=== PATIENT | male | born 1970 | race African-American/Black ===

== ENCOUNTER 2021-02-10 07:42 | Inpatient (IN) | payer OTHER ==
[~2021-02-10] VITALS: Ht 185.4 cm; Wt 109.5 kg
--- NOTE | 2021-02-10 08:30 | PHYS DOC ---
Past History Past Surgical History: No Surgical History General Adult EDM: Chief Complaint: DIZZY/LIGHT HEADED HPI: HPI: Patient is a 50-year-old male coming in for lightheaded episode that started 1 hour prior to arrival. Patient states he felt a little bit "off" when he was driving to work but while he was at work he said everything went "bright" and he felt dizzy, then described dizziness as being lightheaded and denies any vertigo type symptoms. Says the lightheadedness is improved now that he is lying down. Orthostatic vital signs done by nursing triage are positive for increase in heart rate by 20 bpm. Patient states he has been drinking water but when asked what he drinks during the day is mostly soda. Patient states he takes a pill for his hypertension in the evenings that makes him urinate but he does not know which medication he is taking or for sure if it is a diuretic. Denies any history of diabetes, polyuria or polydipsia. Denies any chest pain or pressure. Denies any lower extremity edema. Review of Systems: Review of Systems: All other systems within normal limits except for as noted in the HPI Allergies: Allergies: Allergies Coded Allergies Type Severity Reaction Last Updated Verified No Known Drug Allergies 02/10/21 No Physical Exam: PE: Constitutional: Well developed, well nourished, no acute distress, non-toxic appearance. [] HENT: Normocephalic, atraumatic, bilateral external ears normal, nose normal. [] Eyes: PERRLA, conjunctiva normal, no discharge. [] Neck: No rigidity, supple, no stridor. [] Cardiovascular: Regular rate and rhythm, brisk cap refill, symmetric radial and DP pulses [] Lungs & Thorax: Non labored symmetric respirations, no tachypnea or respiratory distress [] Abdomen: Soft, nondistended. Skin: Warm, dry, no erythema, no rash. [] Back: Unremarkable Extremities: No deformities, range of motion grossly intact, no lower extremity edema [] Neurologic: Alert and oriented X 3, no focal deficits noted. [] Psychologic: Affect normal, judgement normal, mood normal. [] Current Patient Data: Labs: Laboratory Tests Test 02/10/21 07:56 Glucose (Fingerstick) 103 mg/dL (70-99) H Vital Signs: Vital Signs Date Time Temp Pulse Resp B/P (MAP) Pulse Ox O2 Delivery O2 Flow Rate FiO2 02/10/21 07:52 98.1 80 18 150/96 (114) 94 Room Air EKG: EKG: Sinus rhythm, heart rate 80 bpm, LVH, Q waves in inferior leads, normal axis, no prior for comparison[] Radiology/Procedures: Radiology/Procedures: [] Heart Score: C/O Chest Pain: No HEART Score for Chest Pain: HEART Score for Chest Pain Response (Comments) Value History Slighlty/Non-Suspicious 0 ECG Nonspecific Repolarizatio 1 Age >45 - < 65 1 Risk Factors 1 or 2 Risk Factors 1 Troponin >3 x Normal Limit 2 Total 5 Risk Factors: Risk Factors: DM, Current or recent (<one month) smoker, HTN, HLP, family history of CAD, obesity. Risk Scores: Score 0 - 3: 2.5% MACE over next 6 weeks - Discharge Home Score 4 - 6: 20.3% MACE over next 6 weeks - Admit for Clinical Observation Score 7 - 10: 72.7% MACE over next 6 weeks - Early Invasive Strategies Course & Med Decision Making: Course & Med Decision Making Pertinent Labs and Imaging studies reviewed. (See chart for details) [] Dragon Disclaimer: Dragon Disclaimer: This electronic medical record was generated, in whole or in part, using a voice recognition dictation system. Departure Departure: Impression: Primary Impression: NSTEMI (non-ST elevated myocardial infarction) Disposition: ADMITTED INPATIENT Admitting Physician: Jose Eduardo Herron Condition: GUARDED Referrals: MONICA CHAMBERS DO (PCP) IZABELLA GUZMAN MD Feb 10, 2021 08:30
[2021-02-10 08:38] LABS: BASO % 1 % (0-3); EOS # 0.3 x10^3/uL (0.0-0.7); EOS % 3 % (0-3); HEMATOCRIT 38.5 % (39.0-53.0); HEMOGLOBIN 13.1 g/dL (13.0-17.5); LYMPH # 1.9 x10^3/uL (1.0-4.8); LYMPH % 20 % (24-48); MEAN CORPUSCULAR HEMOGLOBIN 26 pg (25-35); MEAN CORPUSCULAR HGB CONC 34 g/dL (31-37); MEAN CORPUSCULAR VOLUME 77 fL (79-100); MONO # 0.9 x10^3/uL (0.0-1.1); MONO % 10 % (0-9); NEUT # 6.6 x10^3uL (1.8-7.7); NEUT % 67 % (31-73); PLATELET COUNT 220 x10^3/uL (140-400); RED BLOOD COUNT 4.98 x10^6/uL (4.30-5.70); WHITE BLOOD COUNT 9.8 x10^3/uL (4.0-11.0)
[2021-02-10 08:49] LABS: CALCIUM 9.1 mg/dL (8.5-10.1); CREATININE 1.5 mg/dL (0.7-1.3); GFR 59.7; POTASSIUM 3.9 mmol/L (3.5-5.1)
[2021-02-10] MEDS: IV NORMAL SALINE 500ML 500 ML IV ONE ×2 (09:00→09:19)
[2021-02-10 09:03] LABS: ALBUMIN 3.9 g/dL (3.4-5.0); MAGNESIUM 2.1 mg/dL (1.8-2.4); TOTAL BILIRUBIN 0.6 mg/dL (0.2-1.0); TOTAL PROTEIN 7.7 g/dL (6.4-8.2)
--- NOTE | 2021-02-10 09:06 | RAD ---
EXAMINATION: Chest radiograph. VIEWS: Single AP view of the chest COMPARISON: None INDICATION:50 years, Male, near syncope FINDINGS: Normal cardiomediastinal silhouette. No focal consolidation. No pleural effusion or pneumothorax. No acute osseous process. IMPRESSION: No acute cardiopulmonary process. Electronically signed by: Piotr Reeves DO (02/10/2021 9:04 AM) [id number]
--- NOTE | 2021-02-10 09:13 | EKG ---
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
[2021-02-10] MEDS ORDERED: ASPIRIN CHEWABLE 81 MG TABLET. PO ONE (09:15)
[2021-02-10] MEDS ORDERED: IV NORMAL SALINE 1,000ML 1,000 ML IV ONE (09:15)
[2021-02-10] MEDS ORDERED: ASPIRIN CHEWABLE 81 MG TABLET. ONE (09:19)
--- NOTE | 2021-02-10 09:23 | EKG ---
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
[2021-02-10] MEDS ORDERED: HEPARIN for IV BOLUS 10,000 UNIT/10 ML VIAL. IV PRN (09:30)
[2021-02-10] MEDS ORDERED: HEPARIN for IV BOLUS 10,000 UNIT/10 ML VIAL. IV ONE (09:30)
[2021-02-10 09:35] LABS: BILIRUBIN,URINE NEG (NEG); CLARITY,URINE CLEAR; COLOR,URINE AMBER; GLUCOSE,URINE NEG (NEG); NITRITE,URINE NEG (NEG); UROBILINOGEN,URINE 0.2 mg/dL (0.2 mg/dL)
[2021-02-10 09:37] LABS: BACTERIA,URINE FEW /HPF (0-FEW); HYALINE CASTS, URINE FEW /HPF; RBC,URINE 0 /HPF (0-2); SQUAMOUS EPITHELIAL CELL,UR FEW /LPF
[2021-02-10] MEDS ORDERED: ACETAMINOPHEN 325 MG TABLET PO PRN (10:00)
[2021-02-10] MEDS ORDERED: ONDANSETRON PF 4 MG/2 ML VIAL. IVP PRN (10:00)
[2021-02-10] MEDS: HEPARIN 25,000UTS/250ML PREMIX 250 ML IV PRN ×2 (10:12→23:39)
[2021-02-10] MEDS: IV NORMAL SALINE 1,000ML 1,000 ML IV SCH ×2 (11:23→17:50)
[2021-02-10 13:05] VITALS: BP 188/113
[2021-02-10] MEDS ORDERED: VALS1TAB3 PO (15:13)
[2021-02-10 15:58] VITALS: BP 172/81
--- NOTE | 2021-02-10 17:40 | HP ---
ADMIT DATE: 02/10/2021 HISTORY OF PRESENT ILLNESS: The patient is a 50-year-old -[place] male patient who came with a complaint of dizziness and lightheadedness, started about an hour prior to arrival. The patient stated that he felt a little bit off when he was driving to work, but while he was at work, he said everything went bright and he felt dizzy, then described dizziness as being lightheaded. Denies any vertigo-type symptoms. States the lightheadedness has improved now that he is lying down. Orthostatic vital signs done by nursing triage, are positive for increase in heart rate by 20. The patient states that he has been drinking water, but when asked what he drinks during the day, it is mostly soda. He states that he takes a pill for his hypertension in the evening, makes him urinate, but he does not know which medication he is taking or ____ sure if it is diuretic. He denied any history of diabetes, polyuria, polydipsia. He was extensively investigated in the Emergency Room and has had an EKG, which showed that he was in sinus rhythm at a rate of 80 beats per minute with left ventricular hypertrophy, Q-waves in inferior leads, normal axis. He has had a chest x-ray, which showed that the patient has normal cardiomediastinal silhouette. No focal consolidation, pleural effusion or pneumothorax. No acute osseous process. He has had lab work done, showed that his first troponin was elevated at 0.245 and therefore, he was started on heparin drip and in consultation with the safety and security manager, a decision was made to keep him in [facility] as the safety and security manager will be rounding in this hospital today according to the nurse practitioner. PAST MEDICAL HISTORY: Significant for hypertension. PAST SURGICAL HISTORY: Unremarkable. ALLERGIES: He has no known drug allergies. MEDICATIONS: He is currently on following medications: He is on valsartan/hydrochlorothiazide 80/12.5 mg once a day. FAMILY HISTORY: Has three brothers and one sister older and two brothers younger. His older brother has coronary artery disease and had open heart surgery at age of 59. His father in his 60s and mother is still alive at the age of 76 and seems to have failure to thrive. SOCIAL HISTORY: He is single, has one daughter. Never smoked. Drinks alcohol on the weekends. Does not use any drugs. 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 REVIEW OF SYSTEMS: As per history of present illness. PHYSICAL EXAMINATION, GENERAL: When I examined him, he looked well and was clearly in no apparent respiratory distress. There is no pallor, jaundice, cyanosis, no lymphadenopathy, no thyromegaly, no jugular venous distention. No lower limb edema. VITAL SIGNS: His heart rate was 81, blood pressure was 172/81, temperature was 98.6, respiratory rate was 16 and oxygen saturation was 97%. HEAD, EYES, EARS, NOSE, AND THROAT: Showed normocephalic, atraumatic. NECK: Supple. HEART: Showed normal first and second heart sounds. No gallop or murmur. CHEST: Clear to auscultation. No crepitation or rhonchi. ABDOMEN: Distended, soft, nontender. NEUROLOGIC: He was awake, alert, responding appropriately. Cranial nerves intact. He moves extremities without difficulty, ambulates without assistance or assistive devices. LABORATORY DATA: Showed a white cell count 9800, hemoglobin 13, hematocrit 39, MCV 77 and platelet count of 120,000 with a normal manual differential. His chemistry showed a serum sodium 140, potassium 3.9, chloride 103, bicarbonate 30, anion gap of 7, BUN 20, creatinine 1.5. Estimated GFR was 59 mL per minute. His glucose was 99. Lactic acid was 0.8, calcium was 9.1, magnesium was 2.1. Total bilirubin, AST, ALT, alkaline phosphatase were normal. His troponin was less than 0.245. His beta natriuretic peptide was normal at 35. Total protein 7.7, albumin was 3.9. His prothrombin time/INR and APTT are normal. D-dimer was normal at 0.24. Urinalysis was essentially unremarkable, and his coronavirus rapid testing was negative. The patient has already had two more sets of cardiac enzymes, which showed troponin to be 0.229 and 0.220. ASSESSMENT AND PLAN: The patient will continue on his heparin drip. I will reconcile his medication and continue. We have consulted the safety and security manager and once the decision is made, he probably might need to be transferred to a different facility. The patient made it clear that he does not want to be transferred to [facility]. NITA/BUCK/MIA DR: NITA/emily TID: [id number]
[2021-02-10] MEDS: hydroCHLOROthiazide 12.5 MG CAPSULE PO SCH (17:48)
[2021-02-10] MEDS: LOSARTAN 50 MG TABLET. PO SCH (17:49)
[2021-02-10 19:45] VITALS: BP 143/77
[2021-02-10 23:38] VITALS: BP 150/79
[2021-02-11] MEDS: IV NORMAL SALINE 1,000ML 1,000 ML IV SCH (03:23)
[2021-02-11 05:55] VITALS: BP 170/91
[2021-02-11 06:50] LABS: CREATININE 1.1 mg/dL (0.7-1.3); GFR 85.4; POTASSIUM 3.8 mmol/L (3.5-5.1)
[2021-02-11 06:57] LABS: BASO % 1 % (0-3); EOS # 0.4 x10^3/uL (0.0-0.7); EOS % 5 % (0-3); HEMATOCRIT 37.3 % (39.0-53.0); HEMOGLOBIN 12.5 g/dL (13.0-17.5); LYMPH # 2.2 x10^3/uL (1.0-4.8); LYMPH % 25 % (24-48); MEAN CORPUSCULAR HEMOGLOBIN 26 pg (25-35); MEAN CORPUSCULAR HGB CONC 34 g/dL (31-37); MEAN CORPUSCULAR VOLUME 78 fL (79-100); MONO # 0.9 x10^3/uL (0.0-1.1); MONO % 10 % (0-9); NEUT # 5.1 x10^3uL (1.8-7.7); NEUT % 59 % (31-73); PLATELET COUNT 202 x10^3/uL (140-400); RED BLOOD COUNT 4.78 x10^6/uL (4.30-5.70); RED CELL DISTRIBUTION WIDTH 14.9 % (11.5-14.5); WHITE BLOOD COUNT 8.6 x10^3/uL (4.0-11.0)
[2021-02-11] MEDS: HEPARIN 25,000UTS/250ML PREMIX 250 ML IV PRN (07:39)
[2021-02-11] MEDS: hydroCHLOROthiazide 12.5 MG CAPSULE PO SCH (09:01)
[2021-02-11] MEDS: LOSARTAN 50 MG TABLET. PO SCH (09:02)
[2021-02-11 10:52] VITALS: BP 179/112
--- NOTE | 2021-02-11 13:29 | PDOC2 ---
CONSULT DOS: DATE: 02/11/21 TIME: 13:24 Reason for Consult: Dizziness and minimally elevated troponin. Referring Physician: Dr. Herron Chief Complaint Dizziness and lightheadedness Source: Chart review, Patient Problem List Problems Medical Problems: (1) NSTEMI (non-ST elevated myocardial infarction) Status: Acute History of Present Illness The patient is a pleasant 50-year-old male who was admitted through the emergency room for episodes of dizziness and lightheadedness. The patient had no episode of syncope. He did have mild orthostatic changes. He has a history of hypertension but no history of coronary disease, congestive heart failure or cardiac arrhythmias. His chest x-ray was clear with no acute changes. EKG showed a sinus rhythm with nonspecific ST-T wave changes and borderline left ventricle hypertrophy. His initial troponin was minimally elevated at 0.220. Since admission the patient has remained pain-free. He was treated with IV fluids and is feeling significantly better. His troponin level has peaked at 0.229. He is feeling significantly better. Of note a cholesterol panel today showed elevated LDL at 159 and an HDL of 46. Cardiovascular: HTN Past Surgical History: No pertinent history Family History: Coronary Artery Disease, Heart Disease Smoke: No ALCOHOL: occassional Current Medications Current Medications Sodium Chloride 500 ml @ 0 mls/hr 1X ONCE IV ; Start 02/10/21 at 09:00; Stop 02/10/21 at 09:01; Status DC Aspirin (Aspirin Chewable) 324 mg 1X ONCE PO Last administered on 02/10/21at 0 9:20; Start 02/10/21 at 09:15; Stop 02/10/21 at 09:19; Status DC Sodium Chloride 1,000 ml @ 1,000 mls/hr 1X ONCE IV Last administered on 02/10/21at 09:21; Start 02/10/21 at 09:15; Stop 02/10/21 at 10:14; Status DC Aspirin (Aspirin Chewable) 81 mg STK-MED ONCE .ROUTE ; Start 02/10/21 at 09:19; Stop 02/10/21 at 09:19; Status DC Heparin Sodium/ Dextrose 250 ml @ 10 mls/hr CONT PRN IV SEE I/O RECORD Last administered on 02/11/21at 07:39; Start 02/10/21 at 09:30 Heparin Sodium (Porcine) (Heparin Sodium) 4,000 unit 1X ONCE IV Last administered on 02/10/21at 10:07; Start 02/10/21 at 09:30; Stop 02/10/21 at 09:48; Status DC Heparin Sodium (Porcine) (Heparin Sodium) 2,750 unit PRN Q6HRS PRN IV FOR PTT LESS THAN 24 SECONDS; Start 02/10/21 at 09:30 Ondansetron HCl (Zofran) 4 mg PRN Q4HRS PRN IVP NAUSEA/VOMITING; Start 02/10/21 at 10:00; Stop 02/11/21 at 09:59; Status DC Fentanyl Citrate (Fentanyl 2ml Vial) 50 mcg PRN Q1HR PRN IVP PAIN; Start 02/10/21 at 10:00; Stop 02/11/21 at 09:59; Status DC Sodium Chloride 1,000 ml @ 125 mls/hr Q8H IV Last administered on 02/11/21at 03:23; Start 02/10/21 at 10:00; Stop 02/11/21 at 09:59; Status DC Acetaminophen (Tylenol) 650 mg PRN Q4HRS PRN PO FEVER > 100.3'F; Start 02/10/21 at 10:00; Stop 02/11/21 at 09:59; Status DC Losartan Potassium (Cozaar) 50 mg DAILY PO Last administered on 02/11/21at 09:02; Start 02/10/21 at 18:00 Hydrochlorothiazide (Microzide) 12.5 mg DAILY PO Last administered on 02/11/21at 09:01; Start 02/10/21 at 18:00 Active Scripts Active Reported Diovan Hct 80-12.5 Mg Tablet (Valsartan/Hydrochlorothiazide) 1 Each Tablet 1 Tab PO DAILY Allergies: Coded Allergies: No Known Drug Allergies (Unverified , 02/10/21) General: YES: Fatigue Cardiovascular: yes: Lt Headedness General: No acute distress HEENT: Atraumatic Lungs: Clear to auscultation Heart: Regular rate Abdomen: Normal bowel sounds Extremities: No clubbing VITALS Vital Signs Date Time Temp Pulse Resp B/P (MAP) Pulse Ox O2 Delivery O2 Flow Rate FiO2 02/11/21 10:52 98.3 79 18 179/112 (134) 98 Room Air Labs Laboratory Tests Test 02/10/21 07:56 02/10/21 08:15 02/10/21 08:45 02/10/21 09:09 Glucose (Fingerstick) 103 mg/dL (70-99) White Blood Count 9.8 x10^3/uL (4.0-11.0) Red Blood Count 4.98 x10^6/uL (4.30-5.70) Hemoglobin 13.1 g/dL (13.0-17.5) Hematocrit 38.5 % (39.0-53.0) Mean Corpuscular Volume 77 fL (79-100) Mean Corpuscular Hemoglobin 26 pg (25-35) Mean Corpuscular Hemoglobin Concent 34 g/dL (31-37) Red Cell Distribution Width 15.0 % (11.5-14.5) Platelet Count 220 x10^3/uL (140-400) Neutrophils (%) (Auto) 67 % (31-73) Lymphocytes (%) (Auto) 20 % (24-48) Monocytes (%) (Auto) 10 % (0-9) Eosinophils (%) (Auto) 3 % (0-3) Basophils (%) (Auto) 1 % (0-3) Neutrophils # (Auto) 6.6 x10^3uL (1.8-7.7) Lymphocytes # (Auto) 1.9 x10^3/uL (1.0-4.8) Monocytes # (Auto) 0.9 x10^3/uL (0.0-1.1) Eosinophils # (Auto) 0.3 x10^3/uL (0.0-0.7) Basophils # (Auto) 0.0 x10^3/uL (0.0-0.2) Sodium Level 140 mmol/L (136-145) Potassium Level 3.9 mmol/L (3.5-5.1) Chloride Level 103 mmol/L (98-107) Carbon Dioxide Level 30 mmol/L (21-32) Anion Gap 7 (6-14) Blood Urea Nitrogen 20 mg/dL (8-26) Creatinine 1.5 mg/dL (0.7-1.3) Estimated GFR (Cockcroft-Gault) 59.7 BUN/Creatinine Ratio 13 (6-20) Glucose Level 99 mg/dL (70-99) Calcium Level 9.1 mg/dL (8.5-10.1) Magnesium Level 2.1 mg/dL (1.8-2.4) Total Bilirubin 0.6 mg/dL (0.2-1.0) Aspartate Amino Transf (AST/SGOT) 31 U/L (15-37) Alanine Aminotransferase (ALT/SGPT) 39 U/L (16-63) Alkaline Phosphatase 95 U/L (46-116) Troponin I Quantitative 0.245 ng/mL (0-0.055) TK-Yie-E-Type Natriuretic Peptide 35 pg/mL (0-124) Total Protein 7.7 g/dL (6.4-8.2) Albumin 3.9 g/dL (3.4-5.0) Albumin/Globulin Ratio 1.0 (1.0-1.7) Prothrombin Time 9.9 SEC (9.4-11.4) Prothromb Time International Ratio 1.0 (0.9-1.1) D-Dimer (Meaghan) 0.24 mg/L (0.00-0.50) Lactic Acid Level 0.8 mmol/L (0.4-2.0) Urine Collection Type Void Urine Color [place] Urine Clarity Clear Urine pH 6.0 Urine Specific [place] >=1.030 Urine Protein Trace (NEG-TRACE) Urine Glucose (UA) Neg mg/dL (NEG) Urine Ketones (Stick) Neg mg/dL (NEG) Urine Blood Neg (NEG) Urine Nitrite Neg (NEG) Urine Bilirubin Neg (NEG) Urine Urobilinogen Dipstick 0.2 mg/dL (0.2 mg/dL) Urine Leukocyte Esterase Neg (NEG) Urine RBC 0 /HPF (0-2) Urine WBC 1-4 /HPF (0-4) Urine Squamous Epithelial Cells Few /LPF Urine Bacteria Few /HPF (0-FEW) Urine Hyaline Casts Few /HPF Urine Mucus Mod /LPF Test 02/10/21 10:33 02/10/21 11:00 02/10/21 13:10 02/10/21 15:20 Coronavirus (COVID-19)(PCR) Negative (NEGATIVE) SARS-CoV-2 Antigen (Rapid) Negative (NEGATIVE) Activated Partial Thromboplast Time 26 SEC (23-33) Troponin I Quantitative 0.229 ng/mL (0-0.055) 0.220 ng/mL (0-0.055) Test 02/10/21 17:15 02/10/21 23:00 02/11/21 06:15 Activated Partial Thromboplast Time 36 SEC (23-33) 37 SEC (23-33) 45 SEC (23-33) White Blood Count 8.6 x10^3/uL (4.0-11.0) Red Blood Count 4.78 x10^6/uL (4.30-5.70) Hemoglobin 12.5 g/dL (13.0-17.5) Hematocrit 37.3 % (39.0-53.0) Mean Corpuscular Volume 78 fL (79-100) Mean Corpuscular Hemoglobin 26 pg (25-35) Mean Corpuscular Hemoglobin Concent 34 g/dL (31-37) Red Cell Distribution Width 14.9 % (11.5-14.5) Platelet Count 202 x10^3/uL (140-400) Neutrophils (%) (Auto) 59 % (31-73) Lymphocytes (%) (Auto) 25 % (24-48) Monocytes (%) (Auto) 10 % (0-9) Eosinophils (%) (Auto) 5 % (0-3) Basophils (%) (Auto) 1 % (0-3) Neutrophils # (Auto) 5.1 x10^3uL (1.8-7.7) Lymphocytes # (Auto) 2.2 x10^3/uL (1.0-4.8) Monocytes # (Auto) 0.9 x10^3/uL (0.0-1.1) Eosinophils # (Auto) 0.4 x10^3/uL (0.0-0.7) Basophils # (Auto) 0.0 x10^3/uL (0.0-0.2) Sodium Level 140 mmol/L (136-145) Potassium Level 3.8 mmol/L (3.5-5.1) Chloride Level 106 mmol/L (98-107) Carbon Dioxide Level 28 mmol/L (21-32) Anion Gap 6 (6-14) Blood Urea Nitrogen 14 mg/dL (8-26) Creatinine 1.1 mg/dL (0.7-1.3) Estimated GFR (Cockcroft-Gault) 85.4 Glucose Level 101 mg/dL (70-99) Calcium Level 8.0 mg/dL (8.5-10.1) Triglycerides Level 72 mg/dL (0-150) Cholesterol Level 219 mg/dL (0-200) LDL Cholesterol, Calculated 159 mg/dL (0-100) VLDL Cholesterol, Calculated 14 mg/dL (0-40) Non-HDL Cholesterol Calculated 173 mg/dL (0-129) HDL Cholesterol 46 mg/dL (40-60) Cholesterol/HDL Ratio 4.0 Images Chest x-ray with no acute changes. Assessment/Plan 1. Mild dizziness and lightheadedness. Symptoms have resolved after IV fluids. Rhythm has remained stable. We will gradually increase activity. 2. Minimally elevated troponin levels of 0.220 and 0.229. Patient denies any chest pain upon admission or during his admission. EKG as above shows nonspecific ST-T wave changes. Chest x-ray is clear. In this setting would discontinue heparin. Increase activity. Home probably later today with outpatient stress testing. This was discussed with the patient. 3. History of hypertension. Controlled. 4. Elevated LDL today at 159. Patient will be following up with his primary physician. Would recommend statin treatment. MAYCO ORTIZ MD Feb 11, 2021 13:29
[2021-02-11] MEDS ORDERED: ASPI-630 PO (13:59)
[2021-02-11] MEDS ORDERED: ATOR10TA PO (13:59)
--- NOTE | 2021-02-11 20:58 | DS ---
DATE OF DISCHARGE: 02/11/2021 HOSPITAL COURSE: The patient is a 50-year-old male patient who was admitted to the Emergency Room with a complaint of dizziness and lightheadedness, has had no syncopal episode. He has mild orthostatic hypotension. He was extensively investigated. The EKG showed sinus rhythm with nonspecific ST-T changes. Chest x-ray was clear. His first set of cardiac enzymes, troponin to be 0.220 -- troponin peaked at 0.229. He was started on a heparin drip and was admitted and checked his cholesterol and it was found to be high at 159. He was seen in consultation by the educational assistant who recommended outpatient stress test and therefore his heparin was discontinued and arrangement was made for him to have a stress test as an outpatient. PHYSICAL EXAMINATION: GENERAL: When I saw him this afternoon, he was resting slightly propped up in bed, in no apparent respiratory distress. No pallor, jaundice, cyanosis or thyromegaly. No jugular venous distention. No limb edema. VITAL SIGNS: His heart rate was 79, blood pressure was 179/112, temperature was 98.3, respiratory rate was 18 and oxygen saturation was 98%. HEAD, EYES, EARS, NOSE AND THROAT: Normocephalic, atraumatic. NECK: Supple. HEART: Showed normal first and second heart sounds, no gallop or murmur. CHEST: Clear to auscultation, no crepitation or rhonchi. ABDOMEN: Distended, soft, nontender. NEUROLOGIC: He was awake, alert, responding appropriately. Cranial nerves intact. He moves extremities without difficulty. LABORATORY DATA: His lab work showed a white cell count of 8600, hemoglobin 13, hematocrit 37, MCV 78 and platelet count of 202,000. His serum sodium was 140, potassium 3.8, chloride 106, bicarbonate 28, anion gap of 8, BUN 14, creatinine 1.1. Estimated GFR was 85 mL per minute. His glucose was 101, calcium was 8. His serum triglyceride was 72. Total cholesterol 219, LDL cholesterol 159, VLDL was 14, HDL cholesterol of 46, ratio was 4. DISCHARGE MEDICATIONS: The patient was discharged home to continue on aspirin 81 mg once a day, Lipitor 10 mg at bedtime and Diovan 80/12.5 one tablet once a day. FINAL DISCHARGE DIAGNOSES: 1. Dizziness and lightheadedness, resolved. 2. Non-ST segment elevation myocardial infarction. 3. Hypertension. 4. Hyperlipidemia. The patient will have an outpatient stress test. He was advised he may return to work on a light duty, but no lifting for next [address]: Julissa TID: [id number]
== END 2021-02-11 14:35 | disposition home or self-care (01) | DRG 282 ==
LOC: ER 07:42 → 1 SOUTH 09:57
PROVIDERS: ADMIT Internal Medicine; ATTEND Internal Medicine
DX: I21.4 Non-ST elevation (NSTEMI) myocardial infarction (principal); E78.5 Hyperlipidemia, unspecified; I95.1 Orthostatic hypotension; Z82.49 Family history of ischemic heart disease and other diseases of the circulatory system; I10 Essential (primary) hypertension; Z20.822 Contact with and (suspected) exposure to COVID-19
CPT/HCPCS: 36415; 71045; 80048; 80053; 80061; 81001; 82947; 83605; 83735; 83880; 84484; 85025; 85379; 85610; 85730; 87426; 93005; 96360; J1644; J7040; U0003; 99285-25; J7030